=== PATIENT | male | born 1960 | race Caucasian/White ===

== ENCOUNTER 2019-01-10 21:30 | Emergency (ER) | payer OTHER ==
[2019-01-10] MEDS ORDERED: NS 0.9% 1000 ML** 1,000 ML IV ONE (21:37)
[2019-01-10 22:11] LABS: ABS Eosinophils 0.2 10^3/ul (0-0.6); ABS Lymphocytes 1.7 10^3/ul (1.0-4.8); ABS Monocytes 0.4 10^3/ul (0-0.8); Eosinophil % 4.1 %; Hematocrit 43 % (42-52); Hemoglobin 15.1 g/dL (14.0-18.0); Lymphocyte % 39.6 %; Mean Corpuscular HGB Conc 36 g/dL (31-36); Mean Corpuscular Hemoglobin 35 pg (27-31); Mean Corpuscular Volume 100 fL (80-94); Mean Platelet Volume 8.7 fL (7.4-10.4); Nucleated Red Blood Cells % 0.1; Platelet Count 132 10^3/uL (150-450); Red Blood Count 4.27 10^6 /uL (4.18-5.48); Red Cell Distribution Width 13 % (10-15); White Blood Count 4.3 10^3/uL (3.5-10.8)
[2019-01-10 22:27] LABS: Albumin/Globulin Ratio 1.8 (1-3); BUN/Creatinine Ratio 20.5 (8-20); Calcium 9.9 mg/dL (8.6-10.3); EGFR African American 114.7 (>60); EGFR Non-African American 94.8 (>60); Globulin 2.2 g/dL (2-4); Magnesium 2.3 mg/dL (1.9-2.7); Potassium 4.8 mmol/L (3.5-5.0); Total Bilirubin 0.5 mg/dL (0.2-1.0); Total Protein 6.2 g/dL (6.4-8.9)
--- NOTE | 2019-01-10 22:27 | ED ---
HPI Chest Pain - HPI Summary HPI Summary: This patient is a 58 year old male presenting to [facility] with a chief complaint of diffuse chest pain radiating to his left arm and neck one hour ago. He states he took the dog out and ate ice cream after when felt the pain when he sat down. He describes the pain as an aching pain he has never felt before and rates it 2/10 in severity. He states his pain has resolved by the time he arrived. 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 Anatomically, it was not possible to place a stent so it has been treated medically. He denies SOB, nausea, and vomiting. - History of Current Complaint Chief Complaint: EDChestPainROMI Time Seen by Provider: 01/10/19 22:20 Hx Obtained From: Patient Onset/Duration: Started Hours Ago Initial Severity: Mild Current Severity: Mild Pain Intensity: 2 Pain Scale Used: 0-10 Numeric Chest Pain Radiates: Yes Chest Pain Radiates To:: Arm - Allergy/Home Medications Allergies/Adverse Reactions: Allergies Allergy/AdvReac Type Severity Reaction Status Date / Time Penicillins Allergy Unknown Verified 01/10/19 21:42 Reaction Details Home Medications: Home Medications Aspirin [Aspirin Childrens 81 MG] 81 mg PO DAILY 01/10/19 [History Confirmed 06/19] Atorvastatin* [Lipitor*] 80 mg PO DAILY 01/10/19 [History Confirmed 01/10/19] Bisoprolol/Hydrochlorothiazide [Ziac 5-6.25 mg-] 1 tab PO DAILY 01/10/19 [ History Confirmed 01/10/19] Isosorbide Dinitrate ER TAB* [Isordil SR CAP*] 60 mg PO DAILY 01/10/19 [History Confirmed 01/10/19] Nitroglycerin 0.4 mg SL DAILY PRN 01/10/19 [History Confirmed 01/10/19] PMH/Surg Hx/FS Hx/Imm Hx Cardiovascular History: Reports: Hx Coronary Artery Disease, Hx Hypercholesterolemia Neurological History: Denies: Other Neuro Impairments/Disorders - Surgical History Surgery Procedure, Year, and Place: NONE PERTINENT Infectious Disease History: No Infectious Disease History: Denies: Traveled Outside the [place] in Last 30 Days - Family History Known Family History: Negative: Diabetes - Social History Lives: With Family Substance Use Type: Reports: None Hx Tobacco Use: Yes Review of Systems Negative: Fever Positive: Chest Pain Negative: Shortness Of Breath Negative: Vomiting, Nausea All Other Systems Reviewed And Are Negative: Yes Physical Exam - Summary Physical Exam Summary: Appearance: Well-appearing, Well-nourished, lying in bed comfortably Skin: Warm, dry, no obvious rash Eyes: sclera anicteric, no conjunctival pallor ENT: mucous membranes moist, pharynx appears normal Neck: Supple, nontender Respiratory: Clear to auscultation, no signs of respiratory distress Cardiovascular: Normal S1, S2. No murmurs. Normal distal pulses in tibial and radial bilaterally. Abdomen: Soft, nontender, normal active bowel sounds present Musculoskeletal: Normal, Strength/ROM Intact Neurological: A&Ox3, awake and alert, mentation is normal, speech is fluent and appropriate Psychiatric: affect is normal, does not appear anxious or depressed Triage Information Reviewed: Yes Vital Signs On Initial Exam: Initial Vitals Temp Pulse Resp BP Pulse Ox 98.3 F 61 16 141/90 98 01/10/19 21:40 01/10/19 21:40 01/10/19 21:40 01/10/19 21:40 01/10/19 21:40 Vital Signs Reviewed: Yes Diagnostics - Vital Signs Vital Signs Temp Pulse Resp BP Pulse Ox 01/10/19 21:40 98.3 F 61 16 141/90 98 - Laboratory Lab Results: Lab Results 01/10/19 Range/Units 22:03 WBC 4.3 (3.5-10.8) 10^3/uL RBC 4.27 (4.18-5.48) 10^6 /uL Hgb 15.1 (14.0-18.0) g/dL Hct 43 (42-52) % MCV 100 H (80-94) fL MCH 35 H (27-31) pg MCHC 36 (31-36) g/dL RDW 13 (10-15) % Plt Count 132 L (150-450) 10^3/uL MPV 8.7 (7.4-10.4) fL Neut % (Auto) 46.9 % Lymph % (Auto) 39.6 % [place] % (Auto) 8.6 % Eos % (Auto) 4.1 % Baso % (Auto) 0.8 % Absolute Neuts (auto) 2.0 (1.5-7.7) 10^3/ul Absolute Lymphs (auto) 1.7 (1.0-4.8) 10^3/ul Absolute Monos (auto) 0.4 (0-0.8) 10^3/ul Absolute Eos (auto) 0.2 (0-0.6) 10^3/ul Absolute Basos (auto) 0.0 (0-0.2) 10^3/ul Absolute Nucleated RBC 0.0 10^3/ul Nucleated RBC % 0.1 Result Diagrams: 01/10/19 22:03 01/10/19 22:03 Lab Statement: Any lab studies that have been ordered have been reviewed, and results considered in the medical decision making process. - Radiology CXR Radiology Interpretation Completed By: ED Physician Summary of Radiographic Findings: No acute process. Pending official radiologist report. - EKG 2133 EKG Rhythm: Sinus Rhythm - 62 BPM Summary of EKG Findings: NSR at 62 BPM, P waves, QRS complex, and T waves are within normal limits, T waves and intervals are normal, no ischemic changes. This is a normal EKG. Chest Pain Course/Dx - Course Course Of Treatment: This patient is a 58 year old male presenting to [facility] with a chief complaint of diffuse chest pain radiating to his left arm and neck one hour ago. Symptoms have resolved. Labs, the CXR and EKG were unremarkable for cardiovascular problems. A plan for discharge was discussed with the patient and he was agreeable with this plan. - Diagnoses Provider Diagnoses: Chest pain Discharge - Sign-Out/Discharge Documenting (check all that apply): Patient Departure - Discharge Patient Received Moderate/Deep Sedation with Procedure: No - Discharge Plan Condition: Good Disposition: HOME Patient Education Materials: Chest Pain (ED) Referrals: Inocente Fuchs MD [Primary Care Provider] - 2 Days Additional Instructions: The tests we ran tonight were negative for any heart injury. I think it is safe to discharge you home to followup with your regular doctor or payroll accounting manager on Sunday. However, if you start having more pains like tonight, you should come back as that could be telling us you may have an unstable issue with the heart that would require a more urgent evaluation. - Billing Disposition and Condition Condition: GOOD Disposition: Home - Attestation Statements Document Initiated by Scribe: Yes Documenting Scribe: Rahul Nicole Provider For Whom Scribe is Documenting (Include Credential): Graeme Ricci MD Scribe Attestation: I, Rahul Nicole, scribed for Graeme Ricci MD on 01/11/19 at 0522. Scribe Documentation Reviewed: Yes Provider Attestation: The documentation as recorded by the scribe, Rahul Nicole accurately reflects the service I personally performed and the decisions made by me, Graeme Ricci MD Status of Scribe Document: Viewed
[2019-01-10 22:32] LABS: Activated Partial Thrombo Time 38.6 seconds (26.0-38.0); CKMB ng/mL 3.8 ng/mL (0.6-6.3); INR 0.93 (0.82-1.09)
[2019-01-10 22:46] LABS: TSH (Thyroid Stimulating Horm) 1.4 mcIU/mL (0.34-5.60)
[2019-01-11 02:04] VITALS: BP 123/76
== END 2019-01-11 02:03 | disposition home or self-care (01) ==
LOC: ED 21:30
DX: R07.9 Chest pain, unspecified (principal); I25.10 Atherosclerotic heart disease of native coronary artery without angina pectoris; E78.00 Pure hypercholesterolemia, unspecified; Z79.82 Long term (current) use of aspirin; Z79.899 Other long term (current) drug therapy; Z88.0 Allergy status to penicillin
CPT/HCPCS: 36415; 71045; 80053; 82550; 82553; 83605; 83735; 83880; 84443; 84484; 85025; 85610; 85730; 93005; 96360; 99284

== ENCOUNTER 2019-10-07 19:23 | Emergency (ER) | payer OTHER ==
--- OUTSIDE RECORDS SUMMARY | 2019-10-07 19:35 | XMS REPORT | Summary of Care ---
:1960 Author Organization [facility] Address [address] [address] Care Team Providers Name Role Phone Inocente Fuchs Primary Care Provider Reason for Visit Reason Comments Follow Up 9 mo f/u CAD. 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 (HCC) (Primary Dx); Cardiology MD Rich Essential hypertension; [address] Dyslipidemia; [place] [address] [place] [address] Tobacco abuse; [phone] Dyspnea, unspecified type Allergies Active Allergy Reactions Severity Noted Date Comments Penicillin G Other 06/10/2012 documented as of this encounter (statuses as of 09/09/2019) Medications Medication Sig Dispensed Refills Start Date End Date Status nitroglycerin Place 1 Tab under 25 Tab 0 05/03/2017 Active (NITROSTAT) 0.4 MG tongue EVERY FIVE Sublingual SL Tab MINUTES NEEDED for chest pain. Aspirin 81 MG Oral Tab Take 81 mg by 0 Active mouth DAILY. bisoprolol-hydrochlorot Take 1 Tab by 90 Tab 1 01/13/2019 Active hiazide (ZIAC) 5-6.25 mouth DAILY. MG Oral Tab atorvastatin (LIPITOR) Take 1 Tab by 30 Tab 11 01/13/2019 Active 80 MG Oral mouth DAILY. 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 Misc isosorbide TAKE 1 TABLET BY 30 Tab 5 08/18/2019 Active MONOnitrate (IMDUR) MOUTH EVERY DAY 60 MG Oral TABLET SR 24 HR albuterol HFA Take 2 Puffs by 1 Inhaler 5 09/08/2019 Active (VENTOLIN) 108 (90 inhalation EVERY Base) MCG/ACT FOUR HOURS Inhalation Aero NEEDED (Shortness SolnIndications: of breath). Dyspnea, unspecified type azithromycin Take 2 pills on 6 Tab 0 07/23/2019 Discontinued (ZITHROMAX) 250 MG the first day and 020 (Patient stopped Oral Tab 1 pill each day the medication) for 4 days documented as of this encounter (statuses as of 09/09/2019) Active Problems Problem Noted Date ASHD (arteriosclerotic heart disease) 07/16/2017 Tobacco user 06/11/2012 Erectile dysfunction 06/11/2012 documented as of this encounter (statuses as of 09/09/2019) Social History Tobacco Use Types Packs/Day Years Used Date Current Every Day Smoker Cigarettes 1 42 Smokeless Tobacco: Never Used Alcohol Use Drinks/Week oz/Week Comments Yes 0 Standard drinks or equivalent 0.0 Social Sex Assigned at Date Recorded Not on file documented as of this encounter Last Filed Vital Signs Vital Sign Reading Time Taken Comments Blood Pressure 118/78 09/08/2019 4:24 PM EDT Pulse 71 09/08/2019 4:24 PM EDT Temperature - - Respiratory Rate - - Oxygen Saturation 96% 09/08/2019 4:24 PM EDT Inhaled Oxygen Concentration - - Weight 66.8 kg (147 lb 3.2 oz) 09/08/2019 4:24 PM EDT Height - - Body Mass Index 23.05 07/23/2019 10:05 AM EST documented in this encounter Patient Instructions Patient InstructionsRich Arnold MD - 09/08/2019 4:20 PM EDT Work on smoking cessation as we discussed. I've prescribed an albuterol inhaler and aerochamber for you. Use 2 puffs as needed for your chest tightness and feeling like you can't take a breath in. Ask the pharmacist to show you how to use it. No other medication changes today. Follow up with me in about 6 months or sooner if needed. documented in this encounter Progress Notes Rich Arnold MD - 09/08/2019 4:20 PM EDT [facility] Patient: Kevin Yeboah Date of : 1960 Date of Service: 09/08/2019 REFERRING PRACTITIONER: Self-Referred PRIMARY CARE PROVIDER: Inocente Fuchs Chief Complaint: Chief Complaint Patient presents with ? Follow Up 9 mo f/u CAD. History of Present Illness: We had the pleasure of seeing Kevin Yeboah today at the [facility] Office. He is a 59-y.o. male with hyperlipidemia, tobacco abuse, and CAD with LAD stenosis of borderline significance being managed medically. Mr. Yeboah returns to cardiology clinic today for routine f/u. Since his last visit with me, he underwent a nuclear stress test (which showed no significant ischemia) and an echocardiogram (results below). From a symptom standpoint, he reports feeling OK although he still occasionally gets soreness in his shoulders and neck and sometimes a squeezing in his epigastrium that makes it feel like he can't take a full breath in. That feeling most often occurs when he's exerting himself such as shoveling snow, etc, and seems to be a little worse in cold weather. Sometimes feels like his chronic back pain also leads to some of his epigastric pain. Hasn't tried taking a SL NTG. Denies any palpitations, lightheadedness, or syncope. No orthopnea, paroxysmal dyspnea, or lower extremity edema. Still smoking about 1 ppd. Has some chronic cough but no audible wheezing. Patient Active Problem List Diagnosis ? Tobacco user ? Erectile dysfunction ? ASHD (arteriosclerotic heart disease) Past Medical History: Diagnosis Date ? Adenomatous polyp of colon 07/16/12 3 years ? ASHD (arteriosclerotic heart disease) 07/16/2017 ? Back pain seen chiropractor ? CAD (coronary artery disease) 2017 med mgmt ? DDD (degenerative disc disease), cervical x ray 2012 advanced ? Dyslipidemia ? ED (erectile dysfunction) ? Gastropathy 07/16/12 EGD ? GERD (gastroesophageal reflux disease) ? Tobacco user Past Surgical History: Procedure Laterality Date ? CATHETERIZATION HEART LEFT N/A 07/16/2017 Procedure: CATHETERIZATION HEART LEFT; Surgeon: Donte Burks MD; Location : [facility] CCL ? MUSCULOSKELETAL OP NEC right wrist surgery after trauma and left 2nd diget ? REPAIR INITIAL INGUINAL HERNIA, Allergies Allergen Reactions ? Penicillin G Other Current Outpatient Medications Medication ? Aspirin 81 MG Oral Tab ? atorvastatin (LIPITOR) 80 MG Oral Tab ? bisoprolol-hydrochlorothiazide (ZIAC) 5-6.25 MG Oral Tab ? isosorbide MONOnitrate (IMDUR) 60 MG Oral TABLET SR 24 HR ? nitroglycerin (NITROSTAT) 0.4 MG Sublingual SL Tab ? Varenicline Tartrate 0.5 MG X 11 & 1 MG X 42 Oral Misc Family History Problem Relation Age of Onset ? Cancer Mother and father ? Heart Father ? Cancer Father Esophageal ? Heart Brother ? Cancer Brother ? Heart Brother Pacemaker ? Heart Paternal Grandfather NC Social History Socioeconomic History ? Marital status: Spouse name: Not on file ? Number of children: Not on file ? Years of education: Not on file ? Highest education level: Not on file Occupational History ? Not on file Social Needs ? Financial resource strain: Not on file ? Food insecurity Worry: Not on file Inability: Not on file ? Transportation needs Medical: Not on file Non-medical: Not on file Tobacco Use ? Smoking status: Current Every Day Smoker Packs/day: 1.00 Years: 42.00 Pack years: 42.00 Types: Cigarettes ? Smokeless tobacco: Never Used Substance and Sexual Activity ? Alcohol use: Yes Alcohol/week: 0.0 standard drinks Comment: Social ? Drug use: No ? Sexual activity: Not on file Lifestyle ? Physical activity Days per week: Not on file Minutes per session: Not on file ? Stress: Not on file Relationships ? Social connections Talks on phone: Not on file Gets together: Not on file Attends uatsdin service: Not on file Active member of club or organization: Not on file Attends meetings of clubs or organizations: Not on file Relationship status: Not on file ? Intimate partner violence Fear of current or ex partner: Not on file Emotionally abused: Not on file Physically abused: Not on file Forced sexual activity: Not on file Other Topics Concern ? Back Care Not Asked ? Bike Helmet Not Asked ? Blood Transfusions Not Asked ? Caffeine Concern Not Asked ? Exercise Not Asked ? Hobby Hazards Not Asked ? International Travel Not Asked ? Service Not Asked ? Occupational Exposure Not Asked ? Seat Belt Not Asked ? Self-Exams Not Asked ? Sleep Concern Not Asked ? Special Diet Not Asked ? Stress Concern Not Asked ? Weight Concern Not Asked Social History Narrative ? Not on file Review of Systems - Negative except as noted in HPI. Physical Exam: Vitals: 09/08/19 1624 BP: 118/78 Pulse: 71 SpO2: 96% Weight: 147 lb 3.2 oz (66.8 kg) Body mass index is 23.05 kg/m. General: Well nourished, alert 59-y.o. male in NAD. Smells of tobacco smoke. HEENT: anicteric, MMM, no E/E OP, conj pink Neck: JVP approx 5 cm above RA, no carotid bruits or LAD CV: RRR, normal s1/s2, no appreciable murmurs, rubs, or gallops Pulm: CTA bilaterally without wheezes, rhonchi, or rales. No increased work of breathing. Abd: soft, NT, ND, +BS. No appreciable pulsatile masses or bruits. Ext: no lower extremity edema, no cyanosis, no cords, redness, or warmth, 1+ distal pulses. Neuro: no gross focal deficits Skin: no visible lesions Labs: Lab Results Component Value Date NA 144 09/03/2018 K 4.0 09/03/2018 CL 109 (H) 09/03/2018 CO2 28 09/03/2018 GLUCOSE 93 09/03/2018 BUN 13 09/03/2018 CREATININE 0.9 09/03/2018 CALCIUM 9.3 09/03/2018 TP 6.3 09/03/2018 ALBUMIN 3.6 09/03/2018 AST 49 09/03/2018 ALT 44 09/03/2018 ALK 82 09/03/2018 TBILI 0.6 09/03/2018 EGFR >60 09/03/2018 No results found for: BNP Lab Results Component Value Date CHOL 104 09/03/2018 TRIG 78 09/03/2018 HDL 27 (L) 09/03/2018 LDL 61 09/03/2018 LDLHDLRATIO 2.3 09/03/2018 CHOLHDLRATIO 3.9 09/03/2018 Cardiac Studies: EKG Today (I personally reviewed): NSR in 60s. Slightly delayed R wave progression but otherwise normal. TTE 04/30/19: FINAL IMPRESSION: Normal left heart size with normal LV systolic function and no regional wall motion abnormalities; calculated LVEF 63%. Normal right heart size and RV systolic function. No structurally or hemodynamically significant valvular disease. No pericardial effusion. Compared to resting portion of prior stress echo report 05/14/2017, no significant changes are apparent. Regadenoson SPECT 04/02/2019: IMPRESSION 1. No evidence of reversible ischemia. 2. No fixed perfusion defect suggestive of myocardial scar. Presumed attenuation artifact and physiologic thinning in the apex as outlined above. 3. Normal-sized left ventricle with decreased systolic function with ejection fraction of 30%, which may be artifactually low, of uncertain etiology. Note that the patient has had normal ejection fraction on prior stress echocardiograms. 4. Global hypokinesis, most pronounced in the septum and anterior wall. Given the aforementioned decreased ejection fraction, repeat stress echocardiogram could potentially be clinically warranted. 5. No evidence of transient ischemic dilation. Bilateral ABIs 08/07/17: PVRs and dopplers of the bilateral lower extremities was performed. ? Bilaterally the thigh, calf, ankle, transmet, and 1st toe PVRs are normal with triphasic dopplers obtained at the dorsalis pedis and posterior tibial arteries. ? RT ANNETTA: 1.25 LT ANNETTA: 1.25 ? There is no previous exam available for comparison. Left Heart Cath 07/16/17: SUMMARY: 1. Borderline single-vessel coronary artery disease involving the bifurcation of the mid left anterior descending coronary artery and a very large and not significantly diseased diagonal branch. 2. Medical therapy is most appropriate for this patient with stable angina on one antianginal agent, and with a stress test that by imaging is negative. 3. Should the patient's symptoms progress or be lifestyle limiting, then stenting of this area is not unreasonable. Exercise Stress Echo 05/14/17: Baseline Echocardiogram: Normal left heart size. ?Normal LV systolic function with no regional wall motion abnormalities and ?estimated LVEF 55%. ?Grossly normal right heart size and RV systolic function. ?No hemodynamically significant valvular disease on limited imaging. ?No pericardial effusion. ECG ?At peak exercise, there is up to 1 mm of slowly upsloping ST segment ?depression seen in the inferolateral leads. This is an equivocal finding ?for ischemia. Symptoms ?Patient developed calf discomfort in Stage 2. In Stage 3 he developed ?2-3/10 non-limiting chest discomfort. ?Exercise terminated due to calf discomfort. ?All symptoms resolved by 1-2 minutes into recovery. ?Stress Echo Findings: ?Post exercise, the LV cavity is smaller and peak LVEF is 65-70%. ?There is appropriate augmentation of contractility of all myocardial ?segments. ?No new exercise induced wall motion abnormalities are noted. FINAL IMPRESSION: Exercise tolerance of the patient is good. This test is positive for ischemia by symptoms, equivocal for ischemia by EKG, and negative for ischemia by echocardiographic imaging at an adequate cardiac workload, as described. The Morales treadmill score is -1, indicating a moderate risk of CV morbidity/mortality. Recommendation Symptoms and ECG changes in the absence of imaging findings of ischemia typically do not correspond to obstructive CAD. However, additional evaluation with nuclear stress testing or coronary CT angiography could be considered if clinical suspicion of coronary ischemia is high. Assessment & Plan: Kevin Yeboah is a 59-y.o. male with hyperlipidemia, tobacco abuse, and CAD with LAD stenosis of borderline significance being managed medically. ICD-9-CM ICD-10-CM 1. Coronary artery disease involving tonto apache coronary artery of tonto apache heart with other form of angina pectoris (HCC) 414.01 I25.118 AMBULATORY 12 LEAD EKG (GLOBAL) 413.9 2. Essential hypertension 401.9 I10 3. Dyslipidemia 272.4 E78.5 4. Tobacco abuse 305.1 Z72.0 5. Dyspnea, unspecified type 786.09 R06.00 albuterol HFA (VENTOLIN) 108 (90 Base) MCG/ACT Inhalation Aero Soln AMB AEROCHAMBERS 1. Coronary Artery Disease: Nuclear stress test in April 2019 did not show any significant LAD territory ischemia, which indicates that his known LAD lesion has likely not progressed in severity. At this point he continues to have somewhat atypical symptoms that are not too limiting, and may be related to microvascular angina versus lung disease. I recommend the following: Antiplatelets: Continue aspirin 81 mg daily. Statin: Cont atorvastatin 80mg daily. LDL was 61 in August 2018. Beta-bella: Cont Toprol XL. QUINN-inhibitor/ARB: N/A; no prior NC and LVEF normal. Anti-Anginals: Cont Imdur 60mg daily and prn SL NTG. Smoking cessation counseling was again performed for ~5 minutes. He tried Chantix after his last visit and didn't feel like it helped him much. He's going to discuss buproprion with Dr. Fuchs at some point but for now wants to try cutting back on his own. Other: Given that some of his symptoms may be related to bronchoconstriction from likely COPD, I've prescribed an albuterol inhaler and aerochamber to be used prn. If he finds that this helps his symptoms then it may be reasonable to look into other inhaler therapy for him. 2. HTN: BP control is good today. Continue Ziac and Imdur. Thank you for allowing me to participate in the care of Kevin Yeboah. We will plan on f/u in our office in ~6 months or sooner prn. If you have any questions or concerns please feel free to call our office at . Rich Arnold MD, 09/09/2019, 09:52 This note was created using my previous note as a template; changes were made where appropriate, andall information in the current note is up to date to the best of my knowledge. documented in this encounter Plan of Treatment Date Type Specialty Care Team Description 03/11/2020 Office Visit Cardiology Rich Arnold MD [address] [place] [address] [phone] Name Type Priority Associated Diagnoses Order Schedule AMBULATORY 12 LEAD EKG EKG Routine Coronary artery disease Ordered: 2019 (GLOBAL) involving tonto apache coronary artery of tonto apache heart with other form of angina pectoris (HCC) Health Maintenance Due Date Last Done Comments CT Colonography 1960 Colonoscopy 1960 Colorectal Cancer Screening 1960 FIT-DNA 1960 FIT/FOBT 1960 Sigmoidoscopy 1960 PNEUMOCOCCAL 0-64 YRS (1 of 1965 1 - PPSV23) DTaP/Tdap/Td Vaccines (1 - 1970 Tdap) ZOSTER IMMUNIZATION SERIES 2009 (1 of 2) LUNG CANCER SCREENING 2014 Colonoscopy 07/16/2015 07/16/2012 (Previously completed), 07/16/2012 INFLUENZA VACCINE (#1) 2019 DEPRESSION SCREENING 09/04/2019 09/03/2018 LIPID DISORDER SCREENING 01/14/2020 01/13/2019, 09/03/2018, 11/02/2017, Additional history exists HEPATITIS A IMMUNIZATION Aged Out No longer eligible SERIES based on patient's age to complete this topic HPV IMMUNIZATION SERIES Aged Out No longer eligible based on patient's age to complete this topic MENINGOCOCCAL VACCINE IMM Aged Out No longer eligible based on patient's age to complete this topic documented as of this encounter Goals Goal Patient Goal Associated Recent Patient-Stated? Author Type Problems Progress Blood Pressure Blood Pressure 118/78 No Shila, < 140/90 (09/08/2019 MD Inocente 4:24 PM EDT) Note: This is an individualized treatment (blood pressure) goal for Kevin Yeboah: Displayed above (on the left) is your goal for blood pressure control. Your most recent blood pressure is also shown above, on the right. You should try to achieve blood pressures that are lower than your goal listed above (on the left). Take all prescribed medications as directed Self-management Inocente Juarez MD Note: This is an individualized self-management goal for Kevin Yeboah: Please take all prescribed medications as directed. 1. Do not skip doses. If you cannot afford your medications, talk with your doctor. 2. Use a pill reminder system such as a pill box if needed. Your pharmacist can help you with this. 3. Contact your Pharmacy 5 days before your medication runs out. If you cannot take your medications for any reasons, talk with your doctor. 4. Please bring all of your medication bottles and inhalers (or a list of all your medications/inhalers) with you to every visit. Potential barriers to meeting all of your care plan goals will continue to be addressed on an ongoing basis. documented as of this encounter Results Not on filedocumented in this encounter Visit Diagnoses Diagnosis Coronary artery disease involving tonto apache coronary artery of tonto apache heart with other form of angina pectoris (HCC) Essential hypertension Unspecified essential hypertension Dyslipidemia Other and unspecified hyperlipidemia Tobacco abuse Tobacco use disorder Dyspnea, unspecified type documented in this encounter Insurance Payer Benefit Plan / Subscriber ID Effective Dates Phone Address Type Group [employer] [facility] [id number] 2009-Present [employer] Guarantor Name Account Type Relation to Date of Phone Billing Patient Address Kevin Yeboah Personal/Family 1960 [address] (Home) [facility] [place] [phone] [place], [place] (Work) [id number] documented as of this encounter
--- NOTE | 2019-10-07 21:37 | ED ---
Lower Extremity - HPI Summary HPI Summary: Patient complains of mechanical misstep off a curb 2 days ago with subsequent right ankle and foot pain. Denies any other injuries, pain or symptoms at this time. No anti-coag. - History of Current Complaint Chief Complaint: EDExtremityLower Stated Complaint: R FOOT PAIN PER PT Time Seen by Provider: 10/07/19 21:36 Hx Obtained From: Patient Mechanism Of Injury: Twisted Onset of Pain: Immediate Onset/Duration: Days Severity Initially: Moderate Severity Currently: Moderate Pain Intensity: 7 Pain Scale Used: 0-10 Numeric Timing: Intermittent Location: Is Discrete @ Character Of Pain: Aching, Throbbing Associated Signs And Symptoms: Positive: Swelling, Redness, Bruising Aggravating Factor(s): Standing, Movement, Weight Bearing Alleviating Factor(s): Rest, Elevation Able to Bear Weight: Yes - Allergies/Home Medications Allergies/Adverse Reactions: Allergies Allergy/AdvReac Type Severity Reaction Status Date / Time Penicillins Allergy Unknown Verified 10/07/19 19:27 Reaction Details Home Medications: Home Medications Atorvastatin* [Lipitor*] 80 mg PO DAILY 01/10/19 [History Confirmed 10/07/19] Bisoprolol/Hydrochlorothiazide [Ziac 5-6.25 mg-] 1 tab PO DAILY 01/10/19 [ History Confirmed 10/07/19] Albuterol HFA INHALER* [Ventolin HFA Inhaler*] 2 puff INH Q4H PRN 10/07/19 [ History Confirmed 10/07/19] Aspirin EC TAB* [Ecotrin EC Low Dose 81 MG*] 81 mg PO DAILY 10/07/19 [History Confirmed 10/07/19] Isosorbide Mononitrate [Isosorbide Mononitrate ER] 60 mg PO DAILY 10/07/19 [ History Confirmed 10/07/19] Nitroglycerin TAB 0.4 MG* 0.4 mg SL Q5M PRN 10/07/19 [History Confirmed 10/07/19 ] PMH/Surg Hx/FS Hx/Imm Hx Endocrine/Hematology History: Denies: Hx Anticoagulant Therapy Cardiovascular History: Reports: Hx Coronary Artery Disease, Hx Hypercholesterolemia History: Denies: Hx Dialysis Sensory History: Denies: Hx Eye Prosthesis Opthamlomology History: Denies: Hx Legally Blind EENT History: Denies: Hx Deafness Neurological History: Denies: Hx Dementia, Other Neuro Impairments/Disorders - Surgical History Surgery Procedure, Year, and Place: NONE PERTINENT Infectious Disease History: No Infectious Disease History: Denies: Traveled Outside the [place] in Last 30 Days - Family History Known Family History: Negative: Diabetes - Social History Alcohol Use: Occasionally Substance Use Type: Reports: None Hx Tobacco Use: Yes Smoking Status (MU): Heavy Every Day Tobacco Smoker Review of Systems Constitutional: Negative Eyes: Negative ENT: Negative Cardiovascular: Negative Respiratory: Negative Gastrointestinal: Negative Genitourinary: Negative Musculoskeletal: Other Positive: Bruising Neurological/Mental Status: Negative Psychological: Normal All Other Systems Reviewed And Are Negative: Yes Physical Exam - Summary Physical Exam Summary: Swelling, ecchymosis and erythema along the lateral edge of right foot. PMS intact distally. Otherwise normal exam of ankle and foot. Triage Information Reviewed: Yes Vital Signs On Initial Exam: Initial Vitals Temp Pulse Resp BP Pulse Ox 98.5 F 70 15 158/89 96 10/07/19 19:26 10/07/19 19:26 10/07/19 19:26 10/07/19 19:26 10/07/19 19:26 Vital Signs Reviewed: Yes Appearance: Positive: Well-Appearing Skin: Positive: Warm Head/Face: Positive: Normal Head/Face Inspection Eyes: Positive: Normal Neck: Positive: Supple Respiratory/Lung Sounds: Positive: Clear to Auscultation Cardiovascular: Positive: Normal Abdomen Description: Positive: Nontender Musculoskeletal: Positive: Normal Neurological: Positive: Normal Psychiatric: Positive: Normal AVPU Assessment: Alert - [place] Coma Scale Best Eye Response: 4 - Spontaneous Best Motor Response: 6 - Obeys Commands Best Verbal Response: 5 - Oriented Coma Scale Total: 15 Procedures - Sedation Patient Received Moderate/Deep Sedation with Procedure: No - Splinting 1 Location: right foot and ankle Hand-Made Type: orthoglass Splint: posterior ankle Pre-Proc Neuro Vasc Exam: normal Post-Proc Neuro Vasc Exam: normal Diagnostics - Vital Signs Vital Signs Temp Pulse Resp BP Pulse Ox 10/07/19 19:26 98.5 F 70 15 158/89 96 - Laboratory Lab Statement: Any lab studies that have been ordered have been reviewed, and results considered in the medical decision making process. Lower Extremity Course/Dx - Course Course Of Treatment: Patient complains of mechanical misstep off a curb 2 days ago with subsequent right ankle and foot pain. Denies any other injuries, pain or symptoms at this time. No anti-coag. Vital signs within normal limits. X- ray positive for fifth metatarsal shaft fracture. Posterior ankle splint and crutches applied. Follow-up with the - Diagnoses Provider Diagnoses: Fracture of fifth metatarsal bone of right foot Discharge ED - Sign-Out/Discharge Documenting (check all that apply): Patient Departure - Discharge Plan Condition: Stable Disposition: HOME Patient Education Materials: Foot Fracture in Adults (ED) Referrals: Inocente Fuchs MD [Primary Care Provider] - Additional Instructions: Call primary care to see if you may take ibuprofen. If you may take ibuprofen, alternate ibuprofen 600 mg with Tylenol 650 mg every 3 hours for pain and swelling. Ice 15 minutes at a time. Do not put any weight on foot. Call clinic of orthopedics Dr. Weeks tomorrow morning to arrange for further evaluation of right foot fracture. - Billing Disposition and Condition Condition: STABLE Disposition: Home
[2019-10-07 22:47] VITALS: BP 161/97
== END 2019-10-07 22:47 | disposition home or self-care (01) ==
LOC: ED 19:23
DX: S92.351A Displaced fracture of fifth metatarsal bone, right foot, initial encounter for closed fracture (principal); X50.9XXA Other and unspecified overexertion or strenuous movements or postures, initial encounter; Y92.480 Sidewalk as the place of occurrence of the external cause; I25.10 Atherosclerotic heart disease of native coronary artery without angina pectoris; E78.00 Pure hypercholesterolemia, unspecified; Z79.82 Long term (current) use of aspirin; Z79.899 Other long term (current) drug therapy; Z88.0 Allergy status to penicillin
CPT/HCPCS: 99282